=== PATIENT | male | born 1995 | race Caucasian/White ===

== ENCOUNTER 2019-08-16 15:33 | Emergency (ER) | payer MEDICAID ==
--- NOTE | 2019-08-16 16:53 | EDM.PDOC ---
ED HPI GENERAL MEDICAL PROBLEM - General Chief Complaint: Back Pain or Injury Stated Complaint: SEVERE BACK PAIN Time Seen by Provider: 08/16/19 16:50 Source of Information: Reports: Patient History Limitations: Reports: No Limitations - History of Present Illness INITIAL COMMENTS - FREE TEXT/NARRATIVE: Patient's dog tripped him while walking down stairs on 08/14/19, he landed on his lower back. Complains of persistent low back pain, no improvement with Ibuprofen. Denies radiation of the pain, numbness, tingling, weakness, or hematuria. Onset Date: 08/14/19 Location: Reports: Back Severity: Moderate Treatments UPPER LEATHER SORTER: Reports: NSAIDS - Related Data Allergies Allergy/AdvReac Type Severity Reaction Status Date / Time No Known Allergies Allergy Verified 08/16/19 17:04 Home Meds: Home Meds Baclofen 10 mg PO Q8H PRN #20 tablet 08/16/19 [Rx] traMADol [Ultram] 50 - 100 mg PO Q8H PRN #20 tab 08/16/19 [Rx] Past Medical History - Past Health History Medical/Surgical History: Denies Medical/Surgical History ED ROS GENERAL - Review of Systems Review Of Systems: Comprehensive ROS is negative, except as noted in HPI. ED EXAM,LOWER BACK PAIN/INJURY - Physical Exam Exam: See Below Exam Limited By: No Limitations General Appearance: Alert, WD/WN, No Apparent Distress Eye Exam: Bilateral Eye: EOMI, PERRL Nose: Normal Inspection Throat/Mouth: No Airway Compromise Head: Atraumatic, Normocephalic Neck: Full Range of Motion Respiratory/Chest: No Respiratory Distress GI/Abdominal: Soft, Non-Tender, No Distention Back Exam: Full Range of Motion Extremities: Normal Range of Motion Neurological: Alert, Normal Mood/Affect, No Motor/Sensory Deficits, Oriented x 3 Psychiatric: Normal Affect, Normal Mood Skin Exam: Warm, Dry, Intact Course - Vital Signs Last Recorded V/S: Last Vital Signs Temp 36.6 C 08/16/19 16:38 Pulse 62 08/16/19 16:38 Resp 16 08/16/19 16:38 BP 127/76 08/16/19 16:38 Pulse Ox 96 08/16/19 16:38 - Orders/Labs/Meds Orders: Active Orders 24 hr Category Date Time Status Lumbar Spine 2 or 3V [CR] Stat Exams 08/16/19 16:49 Taken Meds: Medications Discontinued Medications Generic Name Dose Route Start Last Admin Trade Name Freq PRN Reason Stop Dose Admin Baclofen 10 mg 08/16/19 17:46 Lioresal PO 08/16/19 17:47 ONETIME ONE Tramadol HCl 100 mg 08/16/19 17:46 Ultram PO 08/16/19 17:47 ONETIME ONE - Radiology Interpretation Free Text/Narrative:: L-spine xray: No osseous abnormalities. (ED provider interpretation) Departure - Departure Time of Disposition: 17:54 Disposition: Home, Self-Care 01 Condition: Good Clinical Impression: Contusion of lower back Qualifiers: Encounter type: initial encounter Qualified Code(s): S30.0XXA - Contusion of lower back and pelvis, initial encounter - Discharge Information *PRESCRIPTION DRUG MONITORING PROGRAM REVIEWED*: Yes *COPY OF PRESCRIPTION DRUG MONITORING REPORT IN PATIENT LUIS FERNANDO: Not Applicable Prescriptions: Baclofen 10 mg PO Q8H PRN #20 tablet PRN Reason: Muscle Spasm traMADol [Ultram] 50 - 100 mg PO Q8H PRN #20 tab PRN Reason: Pain Referrals: Rolanda Harrington GEOTHERMAL POWERPLANT SUPERVISOR [Primary Care Provider] - Forms: ED Department Discharge Additional Instructions: Fill the prescriptions for Tramadol and Baclofen and take as directed. Rest. Follow up with your primary physician in 3 days if symptoms don't improve. Sepsis Event Note - Focused Exam Vital Signs: Vital Signs Temp Pulse Resp BP Pulse Ox 08/16/19 16:38 36.6 C 62 16 127/76 96 Date Exam was Performed: 08/16/19 Time Exam was Performed: 17:54 - My Orders Last 24 Hours: My Active Orders 08/16/19 16:49 Lumbar Spine 2 or 3V [CR] Stat - Assessment/Plan Last 24 Hours: My Active Orders 08/16/19 16:49 Lumbar Spine 2 or 3V [CR] Stat
[2019-08-16] MEDS ORDERED: Baclofen 10 MG Tab PO ONE (17:46)
[2019-08-16] MEDS ORDERED: traMADol 50 MG Tab PO ONE (17:46)
== END 2019-08-16 18:12 | disposition home or self-care (01) ==
LOC: FB.ED 15:33
DX: S30.0XXA Contusion of lower back and pelvis, initial encounter (principal); W10.9XXA Fall (on) (from) unspecified stairs and steps, initial encounter
CPT/HCPCS: 72100; 99283; A9270

== ENCOUNTER 2020-06-28 20:52 | Emergency (ER) | payer OTHER, MEDICAID ==
--- NOTE | 2020-06-28 21:14 | EDM.PDOC ---
ED HPI GENERAL MEDICAL PROBLEM - General Stated Complaint: R HAND,THUMB INJURY Time Seen by Provider: 06/28/20 20:55 Source of Information: Reports: Patient History Limitations: Reports: No Limitations - History of Present Illness INITIAL COMMENTS - FREE TEXT/NARRATIVE: Patient presented to the ED because of right thumb injury. He is able to extend and flex his finger without any difficulty. - Related Data Allergies Allergy/AdvReac Type Severity Reaction Status Date / Time No Known Allergies Allergy Verified 08/16/19 17:04 Home Meds: Home Meds Baclofen 10 mg PO Q8H PRN #20 tablet 08/16/19 [Rx] traMADol [Ultram] 50 - 100 mg PO Q8H PRN #20 tab 08/16/19 [Rx] Past Medical History - Past Health History Medical/Surgical History: Denies Medical/Surgical History HEENT History: Reports: None Cardiovascular History: Reports: None Respiratory History: Reports: None Gastrointestinal History: Reports: None - Past Surgical History HEENT Surgical History: Reports: None Cardiovascular Surgical History: Reports: None GI Surgical History: Reports: None Endocrine Surgical History: Reports: None Musculoskeletal Surgical History: Reports: Other (See Below) Other Musculoskeletal Surgeries/Procedures:: elbow surgery Social & Family History - Family History Family Medical History: No Pertinent Family History - Caffeine Use Caffeine Use: Reports: Soda ED ROS GENERAL - Review of Systems Review Of Systems: See Below Constitutional: Reports: No Symptoms HEENT: Reports: No Symptoms Respiratory: Reports: No Symptoms Cardiovascular: Reports: No Symptoms Endocrine: Reports: No Symptoms GI/Abdominal: Reports: No Symptoms : Reports: No Symptoms Musculoskeletal: Reports: No Symptoms Skin: Reports: No Symptoms Neurological: Reports: No Symptoms ED EXAM, GENERAL - Physical Exam Exam: See Below Exam Limited By: No Limitations General Appearance: Alert, No Apparent Distress Ears: Normal External Exam, Normal Canal Nose: Normal Inspection, Normal Mucosa, No Blood Throat/Mouth: Normal Inspection, Normal Lips, Normal Teeth, Normal Gums Head: Atraumatic, Normocephalic Neck: Normal Inspection, Supple, Non-Tender, Full Range of Motion Respiratory/Chest: No Respiratory Distress, Lungs Clear, Normal Breath Sounds Cardiovascular: Normal Peripheral Pulses, Regular Rate, Rhythm, No Edema GI/Abdominal: Normal Bowel Sounds, Soft, Non-Tender, No Organomegaly Back Exam: Normal Inspection, Full Range of Motion Extremities: Normal Inspection, Normal Range of Motion, Non-Tender Neurological: Alert, Oriented, CN II-XII Intact Course - Vital Signs Text/Narrative:: Reassurance Departure - Departure Time of Disposition: 21:20 Disposition: Home, Self-Care 01 Condition: Good Clinical Impression: Thumbnail injury - Discharge Information Referrals: Roladna Harrington PATHOLOGY LABORATORY DIRECTOR [Primary Care Provider] - Additional Instructions: Please read discharge instructions on thumb injury Soak your thum in ice water,it helps with pain and swelling You can take ibuprofen 800 mg with tylenol 1000 mg every 8 hours as needed for pain/swelling Follow up as needed
== END 2020-06-28 21:30 | disposition home or self-care (01) ==
LOC: FB.ED 20:52
DX: S69.91XA Unspecified injury of right wrist, hand and finger(s), initial encounter (principal); X58.XXXA Exposure to other specified factors, initial encounter
CPT/HCPCS: 99283

== ENCOUNTER 2021-01-28 01:56 | Emergency (ER) | payer MEDICAID ==
[2021-01-28] MEDS ORDERED: Acetaminophen/Codeine 300-30 MG Tab PO ONE (01:57)
[2021-01-28] MEDS ORDERED: Penicillin V Potassium 250 MG Tab PO ONE (01:57)
--- NOTE | 2021-01-28 03:02 | ER ---
DATE SEEN: 01/28/2021 REASON FOR VISIT: Tooth pain. HISTORY OF PRESENT ILLNESS: This is a 25-year-old male with pain around the left cheek for 1-1/2 days making it hard to eat. He has no fever or chills. It is associated with swelling below the left eye. PHYSICAL EXAMINATION: GENERAL: He is not in distress and he is afebrile. HEENT: Head is atraumatic. On examination of his face, there is tenderness and swelling around the left zygoma and maxillary area. Oral exam confirmed a dental cavity in the left upper molar. IMPRESSION: Dental abscess. TREATMENT: Penicillin 500 mg 3 times a day and Tylenol No. 3 one tablet 3 times a day. He has an appointment early next week with a dentist. /[id number] ROMAIN/MCKAY
== END 2021-01-28 02:35 | disposition home or self-care (01) ==
LOC: FB.ED 01:56
DX: K04.7 Periapical abscess without sinus (principal)
CPT/HCPCS: 99282; A9270